=== PATIENT | female | born 1975 | race Two or more races ===

== ENCOUNTER 2017-02-13 20:35 | Emergency (ER) | payer OTHER ==
[~2017-02-13] VITALS: Ht 167.6 cm; Wt 65.8 kg
[2017-02-13 21:05] VITALS: BP 125/78
--- NOTE | 2017-02-13 21:05 | NUR ---
TRIAGED AND PLACED BACK IN LOBBY. NO RESP DISTRESS/THROAT TIGHTNESS/SOB NOTED OR REPORTED. LUNGS CLEAR TO AUSCULTATION. SPEAKS IN FULL SENTENCES. WILL REASSESS.
--- NOTE | 2017-02-13 21:30 | NUR ---
CALLED FOR ROOM ASSIGNMENT' INFORMED PT LEFT.
== END 2017-02-13 21:32 | disposition left against medical advice (07) ==
LOC: ER 20:41
DX: Z53.21 Procedure and treatment not carried out due to patient leaving prior to being seen by health care provider (principal)
CPT/HCPCS: A4606; Z7610